=== PATIENT | male | born 1980 | race Caucasian/White ===

== ENCOUNTER 2017-05-06 21:17 | Emergency (ER) | payer MEDICAID, OTHER ==
[~2017-05-06] VITALS: Ht 182.9 cm; Wt 102.3 kg
[~2017-05-06 21:17] MED LIST: DOXY100T PO; OXYC-360 PO; PERC10TA27 PO
[2017-05-06 21:20] VITALS: BP 167/88; PULSE 102; RESP 20; TEMP 98.6; O2SAT 99
[2017-05-06] MEDS ORDERED: SODIUM CHLOR 0.9% 1000 ML INJ 1,000 ML IV ONE (21:30)
[2017-05-06] MEDS ORDERED: METOCLOPRAMIDE HCL 10 MG/2 ML VIAL IV PUSH ONE (21:30)
[2017-05-06] MEDS ORDERED: GLUCAGON 1 MG/ML VIAL IV PUSH ONE (21:30)
[2017-05-06] MEDS ORDERED: SODIUM CHLORIDE 0.9% FLUSH 10 ML FLUSH IVF PRN (21:30)
[2017-05-06 21:35] VITALS: BP 187/85; PULSE 108; RESP 20; O2SAT 95
--- NOTE | 2017-05-06 21:36 | PD ---
HPI Chief Complaint: GI Complaint Time Seen by Provider: 21:30 Travel History International Travel<30 days: No Contact w/Intl Traveler<30days: No Traveled to known affect area: No History of Present Illness HPI 36 year-old male presents to the emergency department by private transportation for complaint of possible retained esophageal food bolus. Patient reports that approximately 25 minutes prior to arrival to the emergency department while eating steak he ate too large of a bite of the food and reports since having dental extraction frequently and adequately chews his food before swallowing. Patient states she has had episodes frequently of feeling as though fluid has become lodged but typically if he relaxes it manages to pass on into the stomach after some relaxing and some fluid hydration. Patient states this evening he tried to relax without relief and also drank water and beer and managed to spit that up. Patient did not spit up his food bolus. Patient did not vomit. Patient is had no tissue with his airway since consuming the food. Patient has not reported any blood streaks or hematemesis or coffee-ground emesis. Patient states that he is now starting to notice some difficulty with managing his own saliva. Patient takes no medications on a routine basis and has no allergies. Patient has never had upper endoscopy in the past. PFSH Past Medical History Narrative Medical Ankle surgery, urethral surgery, alcohol use, marijuana use; nursing notes reviewed Medical History: Denies Significant Hx Diminished Hearing: No Tetanus Vaccination: Unknown Influenza Vaccination: No Past Surgical History Other Surgery: Yes (REVISION TO URETHRAL OPENING IN INFANCY) Social History Alcohol Use: Yes (DAILY 6 PACK OF BEER) Tobacco Use: No Substance Use: Yes (Marijuana occasionally) Allergies-Medications (Allergen,Severity, Reaction): Coded Allergies: No Known Allergies (Verified , 05/06/17) Reported Meds & Prescriptions Reported Meds & Active Scripts Active Review of Systems Except as stated in HPI: all other systems reviewed are Neg General / Constitutional: No: Fever HENT: No: Congestion Cardiovascular: No: Chest Pain or Discomfort Respiratory: No: Cough, Shortness of Breath, Stridor Gastrointestinal: Positive: Nausea, Other (retained food bolus sensation) Genitourinary: No: Flank Pain Musculoskeletal: No: Pain Hematologic/Lymphatic: No: Lymph Node Enlargement Physical Exam Narrative GENERAL: Well-developed well-nourished mildly anxious-appearing male in no acute distress no respiratory distress; no stridor or hoarseness. Triage vital signs workable for heart rate of 121 on cardiac monitors and sinus rhythm. SKIN: Warm and dry. HEAD: Normocephalic. EYES: No scleral icterus. No injection or drainage. ENT: Mucous membranes moist ; airway is patent NECK: Supple, trachea midline. No JVD or lymphadenopathy. CARDIOVASCULAR: Increased Regular rate and rhythm without murmurs, gallops, or rubs. RESPIRATORY: Breath sounds equal bilaterally. No accessory muscle use. GASTROINTESTINAL: Abdomen soft, non-tender, nondistended. MUSCULOSKELETAL: No cyanosis, or edema. BACK: Nontender without obvious deformity. No CVA tenderness. Data Data Last Documented VS Vital Signs Date Time Temp Pulse Resp B/P (MAP) Pulse Ox O2 Delivery O2 Flow Rate FiO2 05/07/17 03:08 73 20 156/80 (105) 05/07/17 02:55 98 05/06/17 23:47 98.6 Orders Orders Metoclopramide Inj (Reglan Inj) (05/06/17 21:30) Glucagon Inj (Glucagon Inj) (05/06/17 21:30) Sodium Chlor 0.9% 1000 Ml Inj (Ns 1000 M (05/06/17 21:30) Ecg Monitoring (05/06/17 21:30) Iv Access Insert/Monitor (05/06/17 21:30) Oximetry (05/06/17 21:30) Sodium Chloride 0.9% Flush (Ns Flush) (05/06/17 21:30) Nitroglycerin Sl (Nitrostat Sl) (05/06/17 22:00) Ondansetron Inj (Zofran Inj) (05/06/17 22:00) Complete Blood Count With Diff (05/06/17 22:10) Act Partial Throm Time (Ptt) (05/06/17 22:10) Prothrombin Time / Inr (Pt) (05/06/17 22:10) Basic Metabolic Panel (Bmp) (05/06/17 22:10) Alcohol (Ethanol) (05/06/17 22:10) Electrocardiogram (05/06/17 ) Panendo (05/06/17 ) Potassium Chlor 10 Meq Premix (Kcl 10 Me (05/06/17 23:00) Fentanyl Inj (Fentanyl Inj) (05/06/17 23:50) Succinylcholine Inj (Quelicin Inj) (05/06/17 23:51) Propofol 200 Mg/20 Ml Inj (Diprivan 200 (05/06/17 23:30) Fentanyl Inj (Fentanyl Inj) (05/06/17 23:30) Potassium Chloride Eff (K-Lyte Cl Eff) (05/07/17 00:15) General/Pacu (05/06/17 ) Class Iii Pacu Ea 30 Min (05/06/17 ) Potassium, Serum (K) (05/07/17 02:02) Labs Laboratory Tests Test 05/06/17 22:15 05/07/17 02:27 White Blood Count 12.2 TH/MM3 Red Blood Count 5.27 MIL/MM3 Hemoglobin 15.0 GM/DL Hematocrit 44.1 % Mean Corpuscular Volume 83.7 FL Mean Corpuscular Hemoglobin 28.4 PG Mean Corpuscular Hemoglobin Concent 33.9 % Red Cell Distribution Width 12.3 % Platelet Count 299 TH/MM3 Mean Platelet Volume 8.2 FL Neutrophils (%) (Auto) 51.6 % Lymphocytes (%) (Auto) 32.4 % Monocytes (%) (Auto) 10.3 % Eosinophils (%) (Auto) 4.9 % Basophils (%) (Auto) 0.8 % Neutrophils # (Auto) 6.3 TH/MM3 Lymphocytes # (Auto) 3.9 TH/MM3 Monocytes # (Auto) 1.3 TH/MM3 Eosinophils # (Auto) 0.6 TH/MM3 Basophils # (Auto) 0.1 TH/MM3 CBC Comment DIFF FINAL Differential Comment Prothrombin Time 10.9 SEC Prothromb Time International Ratio 1.0 RATIO Activated Partial Thromboplast Time 24.2 SEC Blood Urea Nitrogen 13 MG/DL Creatinine 1.10 MG/DL Random Glucose 106 MG/DL Calcium Level 8.6 MG/DL Sodium Level 135 MEQ/L Potassium Level 2.8 MEQ/L 4.7 MEQ/L Chloride Level 100 MEQ/L Carbon Dioxide Level 22.1 MEQ/L Anion Gap 13 MEQ/L Estimat Glomerular Filtration Rate 75 ML/MIN Ethyl Alcohol Level 24 MG/DL [facility] Medical Decision Making Medical Screen Exam Complete: Yes Emergency Medical Condition: Yes Medical Record Reviewed: Yes Interpretation(s) EKG: Sinus tachycardia rate 118 Differential Diagnosis Retained food bolus, esophageal spasm, esophageal stricture, unlikely Boerhaave' s or Dayana-Lakhani tear, atypical chest pain Narrative Course Patient placed on mixer operator raw salt IV access obtained patient given fluid bolus of normal saline along with Reglan 10 mg IV and glucagon 1 mg IV NTG 0.4 mg SL x 1 @ 10:00 PM no relief of food bolus sensation and remains unable to tolerate/ manage oral secretions; call placed to GI for endoscopy; patient given zofran 4 mg IV for c/o nausea @ 11:05 PM identified to have hypokalemia 2.8 remainder of labs grossly wnl; patient is NPO for EGD for retained food bolus therefore KCL 10 Meq x 3 ivpb ordered for infusion x 3 hours @ 11:08 patient has left for GI suite w/o potassium replacement started @ 12MN patient has been returned from GI lab; taking oral hydration; will be given oral potassium and IV potassium replacement initiated x Patient given oral potassium replacement and IV potassium 10 meq x 3 ordered instructed only administer x 2 BP at time of discharge -- 156/80 Patient stable for outpatient management as encouraged to follow-up with his primary care provider regarding his blood pressure is given prescription for Norvasc will start Norvasc 2.5 mg daily times one week and can increased to Norvasc 5 mg daily; patient's increase fluid hydration and is to follow-up with community relations director per community relations director recommendation draws recommendation Physician Communication Physician Communication patient discussed with [facility] -- discussed with Dr Riggins --will attempt to arrange for EGD at [facility] Diagnosis Primary Impression: Esophageal foreign body Qualified Codes: T18.108A - Unspecified foreign body in esophagus causing other injury, initial encounter Additional Impressions: Hypokalemia HTN (hypertension) Referrals: Primary Care Physician call for appointment Patient Instructions: General Instructions Additional Instructions: Increase fluid hydration Follow-up with primary care provider Follow-up with community relations director as recommended Monitor blood pressure closely once daily Start antihypertensive medication at half dose 2.5 mg daily times one week monitoring blood pressures daily and then increase as prescription 5 mg daily for blood pressure 140/90 Return to the emergency department for any concerns or change in condition Med/Other Pt SpecificInfo: Prescription(s) given Scripts Amlodipine (Norvasc) 5 Mg Tab 5 MG PO DAILY for Blood Pressure Management, #30 TAB 0 Refills Prov: Clare Ashton MD 05/07/17 Disposition: 01 DISCHARGE HOME Condition: Stable Clare Ashton MD May 06, 2017 21:36
[2017-05-06 22:00] VITALS: BP 161/85; PULSE 104; RESP 20; O2SAT 97
[2017-05-06] MEDS ORDERED: NITROGLYCERIN 0.4 MG SL 25 TABS/BTL SL ONE (22:00)
[2017-05-06] MEDS ORDERED: ONDANSETRON HCL 4 MG/2 ML VIAL IV PUSH ONE (22:00)
[2017-05-06 22:22] LABS: AUTOMATED NEUTROPHIL # 6.3 TH/MM3 (1.8-7.7); BASOPHIL # 0.1 TH/MM3 (0-0.2); BASOPHIL % 0.8 % (0.0-2.0); EOSINOPHIL # 0.6 TH/MM3 (0-0.4); EOSINOPHIL % 4.9 % (0.0-4.0); HEMATOCRIT 44.1 % (39.0-51.0); HEMO FLAGS DIFF FINAL; LYMPH % 32.4 % (9.0-44.0); LYMPHOCYTE # 3.9 TH/MM3 (1.0-4.8); MEAN CELL VOLUME 83.7 FL (80.0-100.0); MEAN CORPUSCULAR HEMOGLOBIN 28.4 PG (27.0-34.0); MEAN CORPUSCULAR HGB CONC 33.9 % (32.0-36.0); MONO % 10.3 % (0.0-8.0); NEUT % 51.6 % (16.0-70.0); PLATELET COUNT 299 TH/MM3 (150-450); RED BLOOD COUNT 5.27 MIL/MM3 (4.50-5.90); RED CELL DISTRIBUTION WIDTH 12.3 % (11.6-17.2); WHITE BLOOD COUNT 12.2 TH/MM3 (4.0-11.0)
[2017-05-06 22:27] VITALS: BP 196/86; PULSE 124; RESP 20; O2SAT 97
[2017-05-06 22:38] LABS: APTT (PATIENT) 24.2 SEC (24.3-30.1); PROTHROMBIN TIME - PATIENT 10.9 SEC (9.8-11.6)
[2017-05-06 22:57] VITALS: BP 163/81; PULSE 115; RESP 20; O2SAT 98
[2017-05-06 22:57] LABS: BICARBONATE 22.1 MEQ/L (21.0-32.0)
[2017-05-06 22:58] LABS: POTASSIUM 2.8 MEQ/L (3.5-5.1)
[2017-05-06] MEDS ORDERED: PROPOFOL 200 MG/20 ML AMP IV ONE (23:30)
--- NOTE | 2017-05-06 23:42 | GIPROC ---
[facility] [address] [place] [address], [id number] EGD PROCEDURE REPORT EXAM DATE: 05/06/2017 PATIENT NAME: Syed Nur MR #: [id number] BIRTHDATE: 1980 ATTENDING: Morro Ellison MD ORDER #: [id number] WALLPAPER REMOVER STEAM: Magalis Granados Pat STATUS: outpatient INDICATIONS: The patient is a 36 yr old male here for an EGD due to dysphagia and foreign body removal PROCEDURE PERFORMED: EGD w/ fb removal MEDICATIONS: None and Per Anesthesia. TOPICAL ANESTHETIC: CONSENT: The patient understands the risks and benefits of the procedure and understands that these risks include, but are not limited to: sedation, allergic reaction, infection, perforation and/or bleeding. Alternative means of evaluation and treatment include, among others: physical exam, x-rays, and/or surgical intervention. The patient elects to proceed with this endoscopic procedure. medical equipment was checked for proper function. Hand hygiene and appropriate measures for infection prevention was taken. After the risks, benefits and alternatives of the procedure were thoroughly explained, Informed consent was verified, confirmed and timeout was successfully executed by the treatment team. The patient was anesthetized with topical anesthesia and the Pentax [id number] endoscope was introduced through the mouth and advanced to the second portion of the duodenum. Retroflexed views revealed no abnormalities The gastroscope was then slowly withdrawn and removed. ESOPHAGUS: There was LA Class A esophagitis noted. There was a moderate amount of residual food seen in the distal esophagus. Pushed into the stomach with the scope. STOMACH: There was erythematous moderate gastritis in the gastric antrum. ADVERSE EVENTS: There were no complications. IMPRESSIONS: 1. There was LA Class A esophagitis noted 2. There was a moderate amount of residual food seen in the distal esophagus 3. Pushed into the stomach with the scope 4. There was erythematous gastritis in the gastric antrum 5. Retroflexed views revealed no abnormalities RECOMMENDATIONS: 1. Anti-reflux regimen 2. Start PPI PATIENT CONDITION: stable DISPOSITION: Home REPEAT EXAM: Return 2 weeks EGD with dilatation Morro Ellison MD eSigned: Morro Ellison MD 05/06/2017 11:42 PM cc: Logan Carter M.D. PATIENT NAME: Syed Nur MR#: [id number]
[2017-05-06 23:47] VITALS: PULSE 101; TEMP 98.6
[2017-05-06] MEDS ORDERED: SUCCINYLCHOLINE CHLORIDE 200 MG/10 ML VIAL ONE (23:51)
[2017-05-07 00:10] VITALS: BP 156/90; RESP 20; O2SAT 99
[2017-05-07] MEDS ORDERED: POTASSIUM CHLORIDE 25 MEQ EFFERVESCENT TAB PO ONE (00:15)
[2017-05-07] MEDS: POTASSIUM CHLOR 10 MEQ PREMIX 100 ML IV SCH ×3 (00:33→01:25)
[2017-05-07 00:52] VITALS: BP 158/76; PULSE 108; RESP 20; O2SAT 98
[2017-05-07 02:00] VITALS: BP 149/68; PULSE 88; RESP 20; O2SAT 98
[2017-05-07 02:55] VITALS: BP 160/68
[2017-05-07 03:08] VITALS: BP 156/80; PULSE 73; RESP 20
[2017-05-07] MEDS ORDERED: AMLO5 PO (03:14)
--- NOTE | 2017-05-07 09:13 | EKG ---
Date Performed: 05/06/2017 Time Performed: 22:39:35 PTAGE: 36 years EKG: SINUS TACHYCARDIA NONSPECIFIC T-WAVE ABNORMALITY ABNORMAL RHYTHM ECG NO PREVIOUS TRACING DOCTOR: Jesus Bridges Interpretating Date/Time 05/07/2017 09:12:04
== END 2017-05-07 03:22 | disposition home or self-care (01) ==
LOC: PHED 21:17
DX: T18.108A Unspecified foreign body in esophagus causing other injury, initial encounter (principal); E87.6 Hypokalemia; I10 Essential (primary) hypertension; K20.8 Other esophagitis; K29.60 Other gastritis without bleeding; R00.0 Tachycardia, unspecified; R94.31 Abnormal electrocardiogram [ECG] [EKG]; X58.XXXA Exposure to other specified factors, initial encounter
CPT/HCPCS: 43247; 80048; 80307; 84132; 85025; 85610; 85730; 93005; 96361; 96365; 96367; 96375; 99284; J0330; J1610; J2405; J2765; J3010; J3480; J7030